=== PATIENT | female | born 1985 | race Caucasian/White ===

== ENCOUNTER → 2017-11-23 | Outpatient (CLI) | payer OTHER ==
[2017-11-23 10:11] LABS: HEMATOCRIT 38.8 % (37.0-47.0); HEMOGLOBIN 13.2 g/dl (12.5-16.0); MEAN CELL VOLUME 92 fl (80.0-100.0); MEAN CORPUSCULAR HEMOGLOBIN 31 pg (27.0-31.0); MEAN CORPUSCULAR HGB CONC 34 g/dl (33.0-37.0); MEAN PLATELET VOLUME 11.6 fl (7.4-10.4); PLATELET COUNT 227 K/mm3 (130-400); RED BLOOD COUNT 4.24 M/mm3 (4.10-5.30); REDCELL DISTRIBUTION WIDTH-CV 12.9 % (11.5-14.5)
[2017-11-23 10:51] LABS: HIV 1/2 Antibodies Non-Reactive; HIV-1p24 Antigen Non-Reactive
[2017-11-24 00:14] LABS: HEPATITIS B CORE AB,TOTAL Negative (())
[2017-11-24 00:15] LABS: HEPATITIS B SURFACE ANTIGEN Negative (()); HEPATITIS C VIRUS ANTIBODY Negative (())
[2017-11-24 01:58] LABS: RPR (VDRL) Non-reactive (())
== END ==
LOC: COL.LAB 09:23
DX: Z00.00 Encounter for general adult medical examination without abnormal findings (principal); Z11.3 Encounter for screening for infections with a predominantly sexual mode of transmission

== ENCOUNTER → 2018-03-27 | Outpatient (CLI) | payer OTHER ==
[2018-03-28 02:31] LABS: PROGESTERONE 29.9 ng/mL (())
== END ==
LOC: COL.LAB 13:03
DX: O09.811 Supervision of pregnancy resulting from assisted reproductive technology, first trimester (principal); Z3A.00 Weeks of gestation of pregnancy not specified

== ENCOUNTER 2018-11-22 12:38 | Inpatient (IN) | payer OTHER ==
[~2018-11-22] VITALS: Ht 167.7 cm; Wt 121.8 kg
[2018-11-22] VITALS (18 sets, daily range): BP systolic 93–126; BP diastolic 51–83; PULSE 78–100; TEMP 97.6–98.7
--- NOTE | 2018-11-22 14:40 | NUR ---
1440-G1LO 39[address] GATES' TO 211 FOR SCHEDULED PRIMARY C/S. REPORTS GOOD MOVEMENT, DENIES LOF OR VB. PLACED ON EFM, REACTIVE STRIP, SEE FLOW RECORD. VSS. CONSENTS REVIEWED AND SIGNED. UPDATED ON PLAN OF CARE AND ASSESSMENT COMPLETE. 1520-IV TO LEFT HAND, LAB COLLECTED, LR AND PEPCID PER ANESTHESIA ORDER, SEE EMAR. 1628-AMBULATORY TO OR WITH SPOUSE.
[2018-11-22] MEDS ORDERED: PRENATAL (14:58)
[2018-11-22] MEDS ORDERED: OMEGA-31 SGL PO (14:59)
[2018-11-22 15:48] LABS: BASO % 0.3 % (0.0-2.0); EOS # 0.1 (0.0-0.7); EOS % 0.5 % (0-4.0); GRAN % 82.9 % (42.2-75.2); HEMATOCRIT 39.2 % (37.0-47.0); LYMPH # 1.4 (1.2-3.4); LYMPH % 10.8 % (20.0-51.0); MEAN CELL VOLUME 89 fl (80.0-100.0); MEAN CORPUSCULAR HEMOGLOBIN 30 pg (27.0-31.0); MEAN CORPUSCULAR HGB CONC 33 g/dl (33.0-37.0); MEAN PLATELET VOLUME 11.8 fl (7.4-10.4); MONO # 0.6 (0.1-0.6); MONO % 4.8 % (1.7-9.3); PLATELET COUNT 170 K/mm3 (130-400); RED BLOOD COUNT 4.41 M/mm3 (4.10-5.30)
--- NOTE | 2018-11-22 16:47 | NUR ---
1647-PATIENT SUPINE, DOPPLER FHR [id number].
--- NOTE | 2018-11-22 17:40 | NUR ---
1740-PATIENT TO PACU VIA BED, A&O X4, DENIES PAIN, LR TO LEFT HAND IV, ABDDOMINAL BINDER IN PLACE, DRESSING TO ABDOMEN C/D/I, FUNDAL MASSAGE FIRM AND LOCHIA WNL. VENEGAS TO DD, CLEAR YELLOW URINE. UPDATED ON PLAN OF CARE. RECIEVED BEDSIDE REPORT FROM ABBY MINA
[2018-11-23 04:15] VITALS: BP 114/66; PULSE 83; TEMP 97.9
[2018-11-23 08:30] VITALS: BP 107/58; PULSE 79; TEMP 98
--- NOTE | 2018-11-23 10:44 | NUR ---
Initial visit; Mom thanked Office Employee for offering congratulations and God's blessings for the of her son. Office Employee thanked Mom for choosing [place].
[2018-11-23] MEDS ORDERED: PERCOCET 325 MG1 TA2 PO (11:57)
[2018-11-23] MEDS ORDERED: IBU600 MG PO (11:57)
[2018-11-23 12:30] VITALS: BP 115/65; PULSE 80; TEMP 98.1
[2018-11-23 16:23] VITALS: BP 117/63; PULSE 89; TEMP 98
[2018-11-23 20:00] VITALS: BP 130/81; PULSE 88; TEMP 97.7
[2018-11-24 07:00] VITALS: BP 108/62; PULSE 89; TEMP 98.4
[2018-11-24 15:20] VITALS: BP 112/68; PULSE 76; TEMP 97.8
[2018-11-24 20:45] VITALS: BP 127/80; PULSE 88; TEMP 98
[2018-11-25 07:05] VITALS: BP 112/65; PULSE 85; TEMP 97.9
== END 2018-11-25 13:25 | disposition home or self-care (01) | DRG 788 ==
LOC: OB 12:38
PROVIDERS: ADMIT Obstetrics & Gynecology
PROC: 10D00Z1 Extraction of Products of Conception, Low, Open Approach (ICD-10-PCS; principal; 2018-11-22)
DX: O98.32 Other infections with a predominantly sexual mode of transmission complicating childbirth (principal); A60.00 Herpesviral infection of urogenital system, unspecified; O99.213 Obesity complicating pregnancy, third trimester; Z3A.39 39 weeks gestation of pregnancy; Z37.0 Single live birth
CPT/HCPCS: J0690; J1885; J2270; J2370; J2405; J2590; J7120